=== PATIENT | female | born 1950 | race Caucasian/White ===

== ENCOUNTER 2016-03-08 16:15 | Emergency (ER) | payer MEDICARE, BC ==
[2016-03-08 16:26] VITALS: BP 132/80
[2016-03-08] MEDS ORDERED: Ondansetron ODT TAB* 4 MG PO ONE (17:07)
--- NOTE | 2016-03-08 17:08 | UC ---
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 Lives: With Family Alcohol Use: Daily Substance Use Type: None Smoking Status (MU): Former Smoker Type: Cigarettes Review of Systems Constitutional: Chills, Fatigue Skin: Negative Eyes: Negative ENT: Negative Respiratory: Negative Cardiovascular: Negative Gastrointestinal: Abdominal Pain, Vomiting, Diarrhea Genitourinary: Negative Motor: Negative Neurovascular: Negative Musculoskeletal: Negative Neurological: Negative Psychological: Negative All Other Systems Reviewed And Are Negative: Yes Physical Exam Triage Information Reviewed: Yes Appearance: Ill-Appearing, Pain Distress, Obese Vital Signs: Initial Vital Signs Temp 97.3 F 03/08/16 16:22 Pulse 121 03/08/16 16:22 Resp 18 03/08/16 16:22 BP 132/80 03/08/16 16:22 Pulse Ox 99 03/08/16 16:22 Vital Signs Reviewed: Yes Eye Exam: Normal Eyes: Positive: Conjunctiva Clear ENT Exam: Normal ENT: Positive: Normal ENT inspection, Hearing grossly normal, Pharynx normal, TMs normal. Negative: Nasal congestion, Nasal drainage, Tonsillar swelling, Tonsillar exudate, Trismus, Muffled/hoarse voice Dental Exam: Normal Neck exam: Normal Neck: Positive: Supple, Nontender, No Lymphadenopathy Respiratory Exam: Normal Respiratory: Positive: Chest non-tender, Lungs clear, Normal breath sounds, No respiratory distress, No accessory muscle use Cardiovascular Exam: Normal Cardiovascular: Positive: No Murmur, Pulses Normal, Brisk Capillary Refill, Tachycardia Abdominal Exam: Normal Abdomen Description: Positive: Nontender, No Organomegaly, Soft Bowel Sounds: Positive: Present Musculoskeletal Exam: Normal Musculoskeletal: Positive: Strength Intact, ROM Intact, No Edema Neurological Exam: Normal Neurological: Positive: Alert, Muscle Tone Normal Psychological Exam: Normal Psychological: Positive: Normal Response To Family Skin Exam: Normal Diagnostics - Laboratory Diagnostic Studies Completed/Ordered: ua leuks, blood ketones---will culture ( pt has no c/o) sg 1.030 Re-Evaluation - Re-Evaluation First Eval Change: Improved - tolerated cup of gingerale and an additional cup of ice, vomiting has stopped, feeling better- Abd Pain Female Course/Dx - Course Course Of Treatment: zofran, clear liquids and advance slowly, increase fluids, follow with pcp re-check prn - Differential Dx/Diagnosis Differential Diagnosis: Appendicitis, Constipation, Hepatitis, Urinary Tract Infection, Other - acute Nausea/vomiting Provider Diagnoses: Acute nausea, vomiting, diarrhea Discharge - Discharge Plan Condition: Stable Disposition: HOME Prescriptions: Ondansetron ODT TAB* [Zofran Odt TAB*] 4 mg PO Q6H PRN #10 tab.odt PRN Reason: nausea or vomiting Patient Education Materials: Clear Liquid Diet (ED), Acute Nausea and Vomiting (ED), Nutrition Tips for Relief of Diarrhea (ED) Referrals: Vicky Pierson MD [Primary Care Provider] - If Needed
== END 2016-03-08 18:44 | disposition home or self-care (01) ==
LOC: UCCORT 16:15
DX: R11.2 Nausea with vomiting, unspecified (principal); R19.7 Diarrhea, unspecified; Z88.8 Allergy status to other drugs, medicaments and biological substances; Z87.891 Personal history of nicotine dependence
CPT/HCPCS: 87086; 99212; A9270-GY; G0463

== ENCOUNTER 2016-04-15 08:17 | Emergency (ER) | payer MEDICARE, BC ==
--- NOTE | 2016-04-15 09:29 | UC ---
Respiratory Complaint HPI - HPI Summary HPI Summary: Cough for a week, ill with same. Body aches, malaise, fatigue. Can't sleep well due to cough. Poor appetite. Sinus drainage with yellow phletm - History of Current Complaint Chief Complaint: UCRespiratory Stated Complaint: COUGH/BODY ACHES Time Seen by Provider: 04/15/16 08:46 Hx Obtained From: Patient Onset/Duration: Gradual Onset Timing: Constant Severity Initially: Mild Severity Currently: Moderate Character: Sputum Description: - yellow Aggravating Factors: Recumbent Position Alleviating Factors: OTC Meds Associated Signs And Symptoms: Positive: Dyspnea, Chills, Wheezing, URI, Nasal Congestion, Hoarseness, Sinus Discomfort - Risk Factors Pulmonary Embolism Risk Factors: Negative Cardiac Risk Factors: Negative Pseudomonas Risk Factors: Negative Tuberculosis Risk Factors: Negative - Allergies/Home Medications Allergies/Adverse Reactions: Allergies Allergy/AdvReac Type Severity Reaction Status Date / Time Lisinopril AdvReac Hallucinati Verified 04/15/16 08:49 ons PMH/Surg Hx/FS Hx/Imm Hx Cardiovascular History Of: Reports: Hypertension Respiratory History Of: Reports: Asthma, Bronchitis - Surgical History Surgical History: Yes Surgery Procedure, Year, and Place: left breast lumpectomy, left wrist fx with metal - Family History Known Family History: Positive: Hypertension, Respiratory Disease - Social History Occupation: Retired Lives: With Family Alcohol Use: Daily Substance Use Type: None Smoking Status (MU): Former Smoker Type: Cigarettes When Did the Patient Quit Smoking/Using Tobacco: 1975 Review of Systems Constitutional: Negative Skin: Negative Eyes: Negative ENT: Sore Throat, Nasal Discharge, Other - sinus pain Respiratory: Cough Cardiovascular: Negative Gastrointestinal: Negative Genitourinary: Negative Motor: Negative Neurovascular: Negative Musculoskeletal: Arthralgia, Myalgia Neurological: Negative Psychological: Negative All Other Systems Reviewed And Are Negative: Yes Physical Exam Triage Information Reviewed: Yes Appearance: Well-Appearing, No Pain Distress, Well-Nourished Vital Signs: Initial Vital Signs Temp 99.2 F 04/15/16 08:52 Pulse 120 04/15/16 08:52 Resp 18 04/15/16 08:52 BP 133/75 04/15/16 08:52 Pulse Ox 96 04/15/16 08:52 Vital Signs Reviewed: Yes Eye Exam: Normal ENT: Positive: Hearing grossly normal, Pharynx normal, Nasal congestion, Nasal drainage, TMs normal, Muffled/hoarse voice - hoarse. Negative: Tonsillar swelling, Tonsillar exudate, Trismus Neck exam: Normal Respiratory Exam: Normal Respiratory: Positive: Lungs clear, Normal breath sounds, No respiratory distress, No accessory muscle use, Other: - wet, productive cough Cardiovascular Exam: Normal Musculoskeletal Exam: Normal Neurological Exam: Normal Psychological Exam: Normal Skin Exam: Normal UC Diagnostic Evaluation - Laboratory O2 Sat by Pulse Oximetry: 96 Respiratory Course/Dx - Differential Dx/Diagnosis Differential Diagnosis/HQI/PQRI: Bronchitis, Influenza, Lower Resp Infection, Sinusitis Provider Diagnoses: bronchitis Discharge - Discharge Plan Condition: Stable Disposition: HOME Prescriptions: Azithromycin TAB* [Zithromax TAB (Z-NIKITA) 250 mg #6 tabs] 2 tab PO .TODAY, THEN 1 DAILY #1 nikita Hydrocodone W/ Homatropine [Tussigon] 1 tab PO Q8HR PRN #30 tab MDD 3 tab PRN Reason: Cough Patient Education Materials: Acute Bronchitis (ED) Referrals: Vicky Pierson MD [Primary Care Provider] -
[2016-04-15 09:39] VITALS: BP 119/74
== END 2016-04-15 09:39 | disposition home or self-care (01) ==
LOC: UCCORT 08:17
DX: J40 Bronchitis, not specified as acute or chronic (principal); J45.998 Other asthma; R06.00 Dyspnea, unspecified; R09.81 Nasal congestion; I10 Essential (primary) hypertension; Z87.891 Personal history of nicotine dependence
CPT/HCPCS: 99212; G0463

== ENCOUNTER 2017-06-17 09:00 | Emergency (ER) | payer MEDICARE, BC ==
[2017-06-17 09:16] VITALS: BP 142/67
--- NOTE | 2017-06-17 09:34 | ED ---
Back Pain - HPI Summary HPI Summary: 67 yr old female with the complaint of low back pain. Onset of symptoms two days ago, and not associated with any specific injury or trauma. She states she has pain localized to the low back area and it is worse with going from sit to standing. The patient denies fever, chills, urinary symptoms, focal weakness or numbness. Denies bowel or bladder incontinence. She denies fall. The only thing she can think of is that she was picking up her grandchildren. She is retired. 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 The patient has a family history of multiple myeloma - History of Current Complaint Chief Complaint: UCBackPain Stated Complaint: BACK PAIN Time Seen by Provider: 06/17/17 09:18 Pain Intensity: 7 - Allergies/Home Medications Allergies/Adverse Reactions: Allergies Allergy/AdvReac Type Severity Reaction Status Date / Time lisinopril Allergy Severe Hallucinati Verified 06/17/17 09:17 ons PMH/Surg Hx/FS Hx/Imm Hx Previously Healthy: Yes Cardiovascular History: Reports: Hx Hypertension Respiratory History: Reports: Hx Asthma - Cancer History Cancer Type, Location and Year: breast - Surgical History Surgery Procedure, Year, and Place: left breast lumpectomy, left wrist fx with metal Infectious Disease History: No Infectious Disease History: Denies: Traveled Outside the [place] in Last 30 Days - Family History Known Family History: Positive: Hypertension, Respiratory Disease - Social History Occupation: Retired Lives: With Family Alcohol Use: Daily Substance Use Type: Reports: None Smoking Status (MU): Former Smoker Type: Cigarettes Review of Systems Negative: Fever, Chills, Fatigue Negative: Abdominal Pain, Vomiting, Diarrhea Negative: burning, dysuria, hematuria Positive: Other - back pain Negative: Weakness, Paresthesia, Numbness Psychological: Normal All Other Systems Reviewed And Are Negative: Yes Physical Exam Triage Information Reviewed: Yes Vital Signs On Initial Exam: Initial Vitals Temp Pulse Resp BP Pulse Ox 99.3 F 112 18 142/67 96 06/17/17 09:12 06/17/17 09:12 06/17/17 09:12 06/17/17 09:12 06/17/17 09:12 Vital Signs Reviewed: Yes Appearance: Positive: Well-Appearing, No Pain Distress Skin: Positive: Warm, Skin Color Reflects Adequate Perfusion Head/Face: Positive: Normal Head/Face Inspection Eyes: Positive: EOMI ENT: Positive: Normal ENT inspection Neck: Positive: Supple, Nontender Respiratory/Lung Sounds: Positive: Clear to Auscultation, Breath Sounds Present Cardiovascular: Positive: RRR. Negative: Murmur Abdomen Description: Positive: Nontender Musculoskeletal: Positive: Other - limited ROM in low back due to discomfort. Neurological: Positive: Sensory/Motor Intact, Alert, Oriented to Person Place, Time, CN Intact II-III, Normal Gait, Speech Normal Psychiatric: Positive: Normal - [place] Coma Scale Best Eye Response: 4 - Spontaneous Best Motor Response: 6 - Obeys Commands Best Verbal Response: 5 - Oriented Coma Scale Total: 15 Diagnostics - Vital Signs Vital Signs Temp Pulse Resp BP Pulse Ox 06/17/17 09:12 99.3 F 112 18 142/67 96 - Laboratory Lab Statement: Any lab studies that have been ordered have been reviewed, and results considered in the medical decision making process. - CT abd/pelvis and lumbar spine CT Interpretation: No Acute Changes CT Interpretation Completed By: Radiologist Back Pain Course/Dx - Course Course Of Treatment: 67 yr old with back pain. Very musc/skeletal. No bone lesions on CT and she will follow up with PMD for possible MRI if needed as outpatient. She will be given flexeril script. The patient has no urinary symptoms. Her urine is trace positive leukocytes. I will not treat her at this point. Culture sent. - Diagnoses Provider Diagnoses: Back pain, Hypertension Discharge - Sign-Out/Discharge Documenting (check all that apply): Discharge/Admit/Transfer - Discharge Plan Condition: Good Disposition: HOME Prescriptions: Cyclobenzaprine TAB* [Flexeril 10 MG TAB*] 10 mg PO BID PRN #14 tab PRN Reason: Spasms Patient Education Materials: Hypertension (ED), Back Pain (ED) Referrals: Vicky Pierson MD [Primary Care Provider] - 2 Days Additional Instructions: Do not take more than 600 milligrams of motrin every 8 hours. - Billing Disposition and Condition Condition: GOOD Disposition: HOME
[2017-06-17] MEDS ORDERED: Acetaminophen TAB* 325 MG PO ONE (09:35)
--- NOTE | 2017-06-17 10:50 | RAD ---
Indication: Back pain. CT of the abdomen and pelvis was performed without oral or IV contrast administration. Coronal and sagittal reconstructed images were obtained. The lung bases demonstrate no pleural fluid, nodules or masses. Heart is of normal size without evidence of pericardial effusion. Liver is normal in size. No focal lesions or intrahepatic ductal dilatation is noted. The gallbladder demonstrates no calcified gallstones, pericholecystic fluid or wall thickening. The common duct is not dilated. The pancreas demonstrates no mass or pancreatic duct dilatation. No adrenal masses are noted. The kidneys demonstrate no hydronephrosis. No retroperitoneal lymphadenopathy is noted. Atherosclerotic aorta is noted. No dilated loops of bowel are noted. CT of the pelvis demonstrates no retroperitoneal or pelvic lymphadenopathy. The appendix is normal. No dilated loops of bowel are noted. There is a defect in the abdominal wall muscle lateral to the rectus abdominis muscle. This hernia contains fat. This is consistent with a spigelian hernia. Myomatous changes of the uterus are noted. The urinary bladder is unremarkable. Degenerative changes of the pubic symphysis is noted. 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 Myomatous changes of the uterus. No obstructive uropathy is noted.
--- NOTE | 2017-06-17 11:01 | RAD ---
Back pain. CT of the lumbar spine was obtained in the axial plane. Sagittal and coronal reconstructed images were obtained. The vertebral bodies appear normal in height. There is loss of the normal lordotic curve. At L5-S1 the disc demonstrates no protrusion. At L4-L5 no significant disc protrusion is noted. No central foraminal stenosis is noted. At L3-L4, L2-L3 and L1-L2 no obvious disc protrusion is noted. Calcified disc is noted at T12-L1. No fracture of the lumbar spine is noted. IMPRESSION: No fracture of the lumbar spine is noted.
== END 2017-06-17 11:24 | disposition home or self-care (01) ==
LOC: UCCORT 09:00
DX: M54.5 Low back pain (principal); I10 Essential (primary) hypertension; Z87.891 Personal history of nicotine dependence; Z88.8 Allergy status to other drugs, medicaments and biological substances
CPT/HCPCS: 72131; 74176; 81003; 87086; 99212; A9270-GY; G0463

== ENCOUNTER 2018-06-15 09:09 | Emergency (ER) | payer MEDICARE, BC ==
[2018-06-15 09:30] VITALS: BP 148/68
--- NOTE | 2018-06-15 09:43 | UC ---
Respiratory Complaint HPI - HPI Summary HPI Summary: Pt presents with c/o gradual worsening of cough, sob X 2 weeks. Pt has hx of Asthma and has been using albuterol inhaler more frequently without any relief to symptoms. - History of Current Complaint Chief Complaint: UCRespiratory Stated Complaint: COUGH, CHEST CONGESTION Time Seen by Provider: 06/15/18 09:20 Hx Obtained From: Patient ?: No Onset/Duration: Gradual Onset, Lasting Weeks, Still Present, Worse Since - osnet Timing: Intermittent Episodes Severity Initially: Mild Severity Currently: Moderate Pain Intensity: 1 Character: Cough: Productive Aggravating Factors: Exertion, Deep Breaths Alleviating Factors: Nothing Associated Signs And Symptoms: Positive: Wheezing, URI, Nasal Congestion - Risk Factors Pulmonary Embolism Risk Factors: Negative Cardiac Risk Factors: Hypertension Pseudomonas Risk Factors: Chronic Lung Disease Tuberculosis Risk Factors: Negative - Allergies/Home Medications Allergies/Adverse Reactions: Allergies Allergy/AdvReac Type Severity Reaction Status Date / Time bisoprolol Allergy Hallucinati Verified 06/15/18 09:24 ons Home Medications: Home Medications Albuterol Sulfate [Albuterol Sulfate Hfa] 2 puff INH Q4H PRN 06/15/18 [History Confirmed 06/15/18] Aspirin EC TAB* [Ecotrin EC Low Dose 81 MG*] 81 mg PO DAILY 06/15/18 [History Confirmed 06/15/18] Atorvastatin* [Lipitor 10 MG*] 10 mg PO DAILY 06/15/18 [History Confirmed ] Calcium Carbonate/Vitamin D3 [Calcium 600 + Vit D Tablet] 1 each PO BID [History Confirmed 06/15/18] Cholecalciferol TAB* [Vitamin D TAB*] 2,000 units PO DAILY 06/15/18 [History Confirmed 06/15/18] Irbesartan (NF) [Avapro (NF)] 300 mg PO DAILY 06/15/18 [History Confirmed ] Melatonin/Pyridoxine HCl (B6) [Melatonin 5 mg Tablet] 5 mg PO BEDTIME 06/15/18 [ History Confirmed 06/15/18] amLODIPine TAB* [Norvasc 5 mg TAB*] 10 mg PO DAILY 06/15/18 [History Confirmed 06/15/18] PMH/Surg Hx/FS Hx/Imm Hx Previously Healthy: Yes Endocrine History: Dyslipidemia Cardiovascular History: Cardiac Disease, Hypertension Respiratory History: Asthma - Surgical History Surgical History: Yes Surgery Procedure, Year, and Place: left breast lumpectomy, left wrist fx with metal - Family History Known Family History: Positive: Hypertension, Respiratory Disease - Social History Occupation: Retired Lives: With Family Alcohol Use: 1 glass wine daily Substance Use Type: None Smoking Status (MU): Former Smoker Type: Cigarettes Length of Time of Smoking/Using Tobacco: <1 PPD x 5 Years Have You Smoked in the Last Year: No When Did the Patient Quit Smoking/Using Tobacco: 1975 Review of Systems All Other Systems Reviewed And Are Negative: Yes Constitutional: Positive: Fatigue Skin: Positive: Negative Eyes: Positive: Negative ENT: Positive: Sinus Congestion Respiratory: Positive: Shortness Of Breath, Cough Cardiovascular: Positive: Negative Gastrointestinal: Positive: Negative Genitourinary: Positive: Negative Motor: Positive: Negative Neurovascular: Positive: Negative Musculoskeletal: Positive: Negative Neurological: Positive: Negative Psychological: Positive: Negative Is Patient Immunocompromised?: No Physical Exam Triage Information Reviewed: Yes Appearance: Ill-Appearing Vital Signs: Initial Vital Signs Temp 99.1 F 06/15/18 09:20 Pulse 117 06/15/18 09:20 Resp 20 06/15/18 09:20 BP 148/68 06/15/18 09:20 Pulse Ox 99 06/15/18 09:20 Vital Signs Reviewed: Yes Eye Exam: Normal ENT: Positive: Nasal congestion Dental Exam: Normal Neck exam: Normal Respiratory: Positive: Decreased breath sounds, Wheezing Cardiovascular: Positive: Tachycardia Musculoskeletal Exam: Normal Neurological Exam: Normal Psychological Exam: Normal Skin Exam: Normal Respiratory Course/Dx - Differential Dx/Diagnosis Differential Diagnosis/HQI/PQRI: Bronchitis, Exacerbation Of COPD, Pulmonary Embolism Provider Diagnosis: Exacerbation of asthma, Bronchitis Discharge - Sign-Out/Discharge Documenting (check all that apply): Patient Departure All imaging exams completed and their final reports reviewed: No Studies - Discharge Plan Condition: Stable Disposition: HOME Prescriptions: Amoxicillin PO (*) [Amoxicillin 875 MG (*)] 875 mg PO Q12H #14 tab Benzonatate CAP* [Tessalon 100 MG CAP*] 200 mg PO Q8H PRN #30 cap PRN Reason: Cough Cetirizine* [ZyrTEC 10 MG TAB*] 10 mg PO DAILY #10 tab Codeine Phosphate/Guaifenesin [Guaifen-Codeine 100-10 mg/5 ml] 5 ml PO BEDTIME PRN #25 ml MDD 5 ml PRN Reason: Cough predniSONE TAB* [Deltasone 10 MG TAB*] 30 mg PO DAILY #12 tab Patient Education Materials: Acute Bronchitis (ED), Bronchospasm (ED) Referrals: Vicky Pierson MD [Primary Care Provider] - If Needed - Billing Disposition and Condition Condition: STABLE Disposition: Home
== END 2018-06-15 09:57 | disposition home or self-care (01) ==
LOC: UCCORT 09:09
DX: J45.901 Unspecified asthma with (acute) exacerbation (principal); I10 Essential (primary) hypertension; E78.5 Hyperlipidemia, unspecified; Z87.891 Personal history of nicotine dependence; Z79.82 Long term (current) use of aspirin; Z79.899 Other long term (current) drug therapy; Z88.8 Allergy status to other drugs, medicaments and biological substances
CPT/HCPCS: 99212; G0463

== ENCOUNTER 2018-09-16 07:59 | Emergency (ER) | payer MEDICARE, BC ==
[2018-09-16 08:22] VITALS: BP 130/76
--- NOTE | 2018-09-16 08:30 | UC ---
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 However, since Saturday night (today is Tues am), she has been vomiting non-stop. Initially food, now green bile. No report of coffee ground or bright red. No report of diarrhea. Has not urinated much last couple days. Some abd pain. No abd surgical hx except BTL in remote past. No rash. No sob. No known fever. + tired, dizzy with standing up. No loc. Denies known hx dm. Has not urinated in a couple days. - History of Current Complaint Chief Complaint: UCGI Stated Complaint: VOMITING x36 HRS Time Seen by Provider: 09/16/18 08:29 Hx Obtained From: Patient Pain Intensity: 2 - Allergy/Home Medications Allergies/Adverse Reactions: Allergies Allergy/AdvReac Type Severity Reaction Status Date / Time bisoprolol Allergy Hallucinati Verified 09/16/18 08:16 ons shellfish derived AdvReac Vomiting Verified 09/16/18 08:16 PMH/Surg Hx/FS Hx/Imm Hx Previously Healthy: Yes - Surgical History Surgical History: Yes Surgery Procedure, Year, and Place: left breast lumpectomy, left wrist fx with metal - Family History Known Family History: Positive: Hypertension, Diabetes, Respiratory Disease - Social History Alcohol Use: Occasionally Substance Use Type: None Smoking Status (MU): Former Smoker Type: Cigarettes Length of Time of Smoking/Using Tobacco: <1 PPD x 5 Years Have You Smoked in the Last Year: No When Did the Patient Quit Smoking/Using Tobacco: 1975 Review of Systems All Other Systems Reviewed And Are Negative: Yes Constitutional: Positive: Other - see hpi Skin: Positive: Other - see hpi Eyes: Positive: Negative ENT: Positive: Other - see hpi dry mouth Respiratory: Positive: Other - see hpi Cardiovascular: Positive: Other - see hpi Gastrointestinal: Positive: Other - see hpi Genitourinary: Positive: Other - see hpi Motor: Positive: Other - see hpi Neurovascular: Positive: Other - see hpi Musculoskeletal: Positive: Other: - see hpi Neurological: Positive: Other - see hpi Psychological: Positive: Negative Is Patient Immunocompromised?: No Physical Exam Triage Information Reviewed: Yes Appearance: Well-Nourished, Other: - looks tired and very uncomfortable. able to converse, able to sit up for short periods of time Vital Signs: Initial Vital Signs Temp 98.9 F 09/16/18 08:11 Pulse 120 09/16/18 08:11 Resp 20 09/16/18 08:11 BP 130/76 09/16/18 08:11 Pulse Ox 97 09/16/18 08:11 Vital Signs Reviewed: Yes Eye Exam: Normal ENT Exam: Other - TM de [place]. MM - very dry. Mild post redness, c/w repetative n /v Neck exam: Normal Neck: Positive: Supple Respiratory: Positive: Chest non-tender, Lungs clear, Normal breath sounds, No respiratory distress, No accessory muscle use Cardiovascular Exam: Other - HR 120's, correlates with R Abdominal Exam: Other - + hyeractive bs Some tender RUQ, no r/g mild distended no back pain Musculoskeletal Exam: Other - gait not tested, see hpi Neurological Exam: Normal - grossly nonfocal, detailed neuro not done Psychological Exam: Normal - conversing easily and appropriately Skin Exam: Normal - nondiaphoretic. + pale. No visible or reported rash. Course/Dx - Course Course Of Treatment: Reviewed recommendation for ED evaluation and treatment. Very dehydrated. + active nausea with vomit green runny material. Ms. Choi and her carefully considered this, and agree to go to the hospital. They wish to go to [facility]. They decline EMS, he will drive her. Aware to stop and call 911 if problems en route. FS glucose - Zofran po x 4 =(SL) Questions as posed answered to the best of my ability. d/w Dee Saeed WARNING COORDINATION METEOROLOGIST 09:50 [facility]. - Diagnoses Provider Diagnosis: Dehydration, Vomiting Discharge - Sign-Out/Discharge Documenting (check all that apply): Patient Departure All imaging exams completed and their final reports reviewed: No Studies - Discharge Plan Condition: Guarded Disposition: HOME-RECOMMEND TO ED Patient Education Materials: Dehydration (ED), Acute Abdominal Pain (ED) Referrals: Vicky Pierson MD [Primary Care Provider] - Additional Instructions: Please go immediately to the Emergency Department. Stop and call 911 if problems en route. You received one table of po zofran (for nausea). Your fingerstick blood glucose - 135mg / dl. - Billing Disposition and Condition Condition: GUARDED Disposition: Home-Recommend to ED
[2018-09-16] MEDS ORDERED: Ondansetron ODT TAB* 4 MG PO ONE (08:39)
== END 2018-09-16 08:52 | disposition home health service (06) ==
LOC: UCCORT 07:59
DX: E86.0 Dehydration (principal); R11.10 Vomiting, unspecified; Z87.891 Personal history of nicotine dependence
CPT/HCPCS: 99212; A9270-GY; G0463